=== PATIENT | male | born 1945 | race Caucasian/White ===

== ENCOUNTER → 2023-10-05 | Outpatient (CLI) | payer MEDICARE ==
--- NOTE | 2023-10-11 16:31 | CT ---
EXAMINATION TYPE: CT chest wo con CT DLP: 1972 mGycm, Automated exposure control for dose reduction was used. DATE OF EXAM: 10/05/2023 1:39 PM COMPARISON: None. 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 Sagittal and coronal reformats were created for review. Contrast used: mL of (None if empty) Oral contrast used: (None if empty) FINDINGS: LUNGS/ PLEURA: Diffuse widespread interstitial thickening is seen which I would grade as mild. This p attern is probably most frequently seen with idiopathic pulmonary fibrosis although there probably ar e other etiologies within the differential diagnostic considerations. AIRWAY: Patent and unremarkable. HEART: Size within normal limits. Single focal area of calcific coronary artery atherosclerosis. MEDIASTINUM: No gross evidence of adenopathy. VASCULATURE: No aortic aneurysm. MUSCULOSKELETAL: No acute osseous abnormalities SOFT TISSUES/LYMPH NODES: Unremarkable. LOWER NECK: No significant findings. UPPER ABDOMEN: No significant findings. IMPRESSION: Mild interstitial fibrosis. Follow up recommendations for incidental pulmonary nodules, if there are any, are per [employer] or [employer]. [email or web address]
== END | disposition home or self-care (01) ==
LOC: RADCTMAIN 12:59
PROVIDERS: ATTEND Internal Medicine Critical Care Medicine
DX: J84.9 Interstitial pulmonary disease, unspecified (principal)
CPT/HCPCS: 71250

== ENCOUNTER → 2024-10-24 | Outpatient (CLI) | payer MEDICARE ==
--- NOTE | 2024-10-24 15:27 | CT ---
EXAMINATION TYPE: CT chest wo con DATE OF EXAM: 10/24/2024 COMPARISON: 10/05/2023 CLINICAL INDICATION: Male, 79 years old with history of J84.9 INTERSTITIAL LUNG DISEASE; PHH, possibl e fibrosis per pt TECHNIQUE: CT scan of the thorax is performed without IV contrast. CT DLP: 1494.[address] CTDI: mGy Automated exposure control for dose reduction was used. FINDINGS: There is persistent and stable mild scattered interstitial density, scattered groundglass patchy and mild to moderate lower lobe bronchiectasis. There is a stable juxtapleural 8 mm nodule in the right middle lobe. There is a stable 6 mm nodule in the right upper lobe laterally. There is no new or suspicious lung nodule. There is no pleural effusion or pneumothorax. The great vessels the chest are normal and there is no mediastinal, hilar or axillary adenopathy. Limited scanning through the upper abdomen reveals no gross abnormality. There are no focal osseous lesions. IMPRESSION: 1. Stable mild to moderate chronic interstitial changes most consistent with nonspecific interstitial pneumonia.NSIP 2. Stable pulmonary nodules in the right lung. 3. No new abnormalities and no significant interval change. [facility], , 10/24/2024 3:25 PM
== END | disposition home or self-care (01) ==
LOC: RADCTMAIN 14:33
PROVIDERS: ATTEND Internal Medicine Critical Care Medicine
DX: J84.89 Other specified interstitial pulmonary diseases (principal); R91.8 Other nonspecific abnormal finding of lung field
CPT/HCPCS: 71250